=== PATIENT | male | born 1970 | race Caucasian/White ===

== ENCOUNTER 2021-05-21 13:22 | Inpatient (IN) ==
[2021-05-21 14:05] LABS: Hematocrit (blood only) 42.8 % (42-52); Hemoglobin 15.2 g/dL (14.0-18.0); Immature Granulocytes # (auto) 0.03 K/uL (0.00-0.02); Immature Granulocytes % (auto) 0.6 %; Lymphocytes % (auto) 14.3 %; Mean Corpuscular Hemoglobin 31.3 pg (25-34); Mean Corpuscular Hgb Conc 35.5 g/dL (32-36); Mean Corpuscular Volume 88.1 fL (80-100); Mean Platelet Volume 10.5 fL (7.4-10.4); Monocytes # (auto) 0.26 K/uL (0.11-0.59); Monocytes % (auto) 5.3 %; Neutrophils # (auto) 3.92 K/uL (1.4-6.5); Neutrophils % (auto) 79.8 %; Platelet Count 187 K/uL (130-400); RDW Coefficient of Variation 12.6 % (11.5-14.5); RDW Standard Deviation 40.6 fL (36.4-46.3); Red Blood Count 4.86 M/uL (4.7-6.1); White Blood Count 4.91 K/uL (4.8-10.8)
[2021-05-21] MEDS ORDERED: DEXAMETHASONE SOD INJ 4 MG/ML VIAL IV STA (14:12)
[2021-05-21 14:21] LABS: Partial Thromboplastin Ratio 1.1; Partial Thromboplastin Time 28.3 Seconds (21.0-31.0); Prothrombin Time 10.3 Seconds (9.0-12.0)
[2021-05-21 14:23] LABS: Alanine Aminotransferase 53 U/L (12-78); Albumin Level 2.9 gm/dl (3.4-5.0); Aspartate Aminotransferase 58 U/L (15-37); Blood Urea Nitrogen 10 mg/dl (7-18); Calcium 8.4 mg/dl (8.5-10.1); Carbon Dioxide 26 mmol/L (21-32); Chloride 98 mmol/L (98-107); Est GFR (African American) 115.8 ml/min; Est GFR (Non-African American) 99.9 ml/min; Glucose 171 mg/dl (70-99); Magnesium 1.4 mg/dl (1.8-2.4); Potassium 3.4 mmol/L (3.5-5.1); Sodium 134 mmol/L (136-145)
[2021-05-21 14:28] LABS: Albumin Globulin Ratio 0.6 (0.9-2); Alkaline Phosphatase 62 U/L (45-117); Bilirubin,Total 0.6 mg/dl (0.2-1); Globulin 4.7 gm/dl (2.5-4.0); Total Protein 7.6 gm/dl (6.4-8.2); Troponin I < 0.015 ng/ml (0-0.045)
--- NOTE | 2021-05-21 14:35 | XRay Report ---
XR chest 1V portable HISTORY: 50 years-old Male SOB acute shortness of breath. COVID Positive. COMPARISON: None TECHNIQUE: AP view of the chest FINDINGS: Cardiac silhouette is upper limits of normal in size. Extensive multifocal alveolar opacities. No pne umothorax, or pleural effusion. Bones appear grossly intact. IMPRESSION: Extensive bilateral alveolar opacities compatible with multifocal pneumonia. ACT 112: Negative or not required by law. The above report was generated using voice recognition software. It may contain grammatical, syntax o r spelling errors. Electronically signed by: Agustin Hendricks M.D. 05/21/2021 2:34 PM
[2021-05-21] MEDS: SODIUM CHLORIDE 0.9% 1000ML 1,000 ML IV SCH ×2 (14:36→19:59)
[2021-05-21 14:53] LABS: D Dimer 1110 ug/L FEU (0-500)
[2021-05-21 15:14] LABS: NT Pro B Type Natriuretic Pept 67 pg/ml (0-450)
--- NOTE | 2021-05-21 15:20 | Emergency Department Note ---
History of Present Illness General Chief complaint: Shortness of Breath/Dyspnea Stated complaint: SOB, COUGH, COVID +, NAUSEA, DIZZY Time Seen by Provider: 05/21/21 13:57 Source: patient Mode of arrival: EMS Limitations: no limitations History of Present Illness Provider complaint: shortness of breath, lightheadedness Onset (ago): day(s) 7 Exacerbated By: + movement Associated symptoms: + cough, + fever/chills, + headaches, + loss of appetite, + malaise, + nausea/vomiting and + shortness of breath Treatments prior to arrival: none This is a 50-year-old male presents emergency department complaining of shortness of breath cough, and lightheadedness while in the shower earlier this morning. Patient states he first became sick last Thursday and his symptoms progressed to the week he went and got a Covid test done. He was called with a positive Covid test result on Thursday. He states his family has also been ill. Patient states he has had mild nasal congestion, rhinorrhea, and intermittent abdominal pain in addition to the cough. Patient states he has had increased trouble breathing when taking showers over the course of the last week and assumed it was due to his recent illness however today felt worse and with becoming significantly lightheaded, 911 was contacted. EMS reports on arrival his room air sats were 84%. He was placed on additional oxygen and saturations improved into the 90s and patient reported feeling improved. On my evaluation here patient states he does feel improved with oxygen in place and feels it is easing his work of breathing. Patient denies any current chest pain or abdominal pain. Denies any coming rash or sores, lower extremity edema. Patient has had mild intermittent diarrhea, denies black or bloody stools. Denies any vomiting although states he has not had quite a normal appetite with being ill. Patient has not been previously vaccinated against coronavirus. Pt seen during a time of high acuity and national emergency pandemic while wearing PPE. Home Medications Medication Instructions Recorded Confirmed Type pantoprazole 40 mg tablet,delayed 40 mg PO DAILY PRN 08/18/20 05/21/21 History release dexamethasone 6 mg tablet 6 mg PO DAILY #10 tab 05/21/21 Rx (Decadron) Allergies Allergy/AdvReac Type Severity Reaction Status Date / Time No Known Allergies Allergy Unverified 05/21/21 15:58 Past Med/Surg History Social History Smoking Status: Former smoker Smoking End Date: 7 years ago; Hx Alcohol Use: No Hx Substance Use: No Preferred Language: Tuvaluan Communication Ability: Effective Micro Photographer Required: No Beliefs That Will Affect Care: [place] Current Living Situation: Family Current Living Situation Comment: Lives with and two daughters ( 8 and 2) Feels Safe at Home: Yes Safety Concerns: Feels Safe At This Time Assistive Devices: Oxygen - Continuous Review of Systems A total of 10 systems reviewed and were otherwise negative All systems reviewed & are unremarkable except as noted in HPI & below Physical Exam Vital Signs Vital Signs - 24 hr 05/21/21 16:00 05/21/21 16:30 05/21/21 17:00 Pulse Rate 80 75 74 Pulse Rate [Brachial] Pulse Rate from SpO2 Sensor 80 75 74 Respiratory Rate 35 H 46 H 40 H Blood Pressure 124/76 129/79 135/78 Blood Pressure [Left Arm] Blood Pressure Mean 92 95 97 Blood Pressure Mean [Left Arm] Pulse Oximetry 92 95 94 Oxygen Delivery Method Oxygen Flow Rate 05/21/21 17:30 05/21/21 19:02 Pulse Rate 83 Pulse Rate [Brachial] 72 Pulse Rate from SpO2 Sensor 82 Respiratory Rate 39 H 30 H Blood Pressure 133/81 Blood Pressure [Left Arm] 142/84 H Blood Pressure Mean 98 Blood Pressure Mean [Left Arm] 103 Pulse Oximetry 94 92 Oxygen Delivery Method Nasal Cannula Oxygen Flow Rate 4 GENERAL: alert, well appearing, well nourished, no distress, non-toxic, NC in place EYE EXAM: normal conjunctiva, PERRL and EOM's grossly intact OROPHARYNX: no exudate, no erythema, lips, buccal mucosa, and tongue normal and mucous membranes are moist NECK: supple, no nuchal rigidity, no adenopathy, non-tender LUNGS: Clear to auscultation. Normal chest wall mechanics, no w/r/r, no increased work of breathing, mild tachypnea noted HEART: no murmurs, S1 normal and S2 normal ABDOMEN: abdomen soft, non-tender, normo-active bowel sounds, no masses, no rebound or guarding. BACK: Back is symmetrical on inspection and there is no deformity, no midline tenderness, no CVA tenderness. SKIN: no rashes and no bruising UPPER EXTREMITIES: upper extremities are grossly normal. FROM, nml pulses b/l. LOWER EXTREMITIES: No pitting edema. FROM, nml pulses b/l. NEURO EXAM: Normal sensorium, cranial nerves II-XII grossly intact, normal speech, no gross weakness of arms, no gross weakness of legs. Gross sensation intact. Course Course 1701: Updated pt on results. He states he would prefer to go home if that was an option. He is aware he will need continued oxygen therapy. I did ask case management to investigate if this was an option based on insurance and outpatient follow-up. 183: Case mgmt still working on arranging possible home oxygen. 1899: On recheck, pt appeared more tachypneic than prior. On review of VS and discussion with nursing, he has been increasingly tachypneic. Patient states he does not feel that his breathing is worsening. 1916: Pt states his breathing isn't any worse, however discussed tachypnea. Given difficulty arranging home oxygen, discussed possible inpatient tx overnight with monitoring. 1924: DIscussed with Dr. Charles. Administered Medications Enoxaparin Sodium (Enoxaparin Inj 40 Mg/0.4 Ml Syr) 40 mg SQ Q24H NEHEMIAS Stop: 06/20/21 22:59 Last Admin: 05/22/21 01:12 Dose: 40 mg Documented by: [id number] Dexamethasone 6 mg/ Syringe 1.5 mls @ 1 mls/min IV DAILY NEHEMIAS Stop: 06/01/21 08:59 Last Admin: 05/22/21 08:08 Dose: 1 mls/min Documented by: [id number] Insulin Aspart (Insulin Aspart 100 Units/Ml 3 Ml Pen) 0 units SC ACHS NEHEMIAS Stop: 06/21/21 11:29 Last Admin: 05/22/21 12:27 Dose: 10 units Documented by: [id number] Cosigned by: [id number] Insulin Glargine (Insulin Glargine Solostar 100 Units/Ml 3 Ml Pen) 8 units SC BID NEHEMIAS Stop: 06/21/21 08:59 Last Admin: 05/22/21 10:19 Dose: 8 units Documented by: [id number] Cosigned by: [id number] Sodium Chloride (Sodium Chloride 0.9% 10ml Flush) 30 ml IV Q24H NEHEMIAS Stop: 05/26/21 00:01 Last Admin: 05/21/21 23:58 Dose: 30 ml Documented by: [id number] Discontinued Medications Acetaminophen (Acetaminophen Home Pack 500 Mg Tablet) 1 homepack PO NOW ONE Stop: 05/21/21 17:06 Last Admin: 05/21/21 20:55 Dose: Not Given Documented by: [id number] Dexamethasone (Dexamethasone Sod Inj 4 Mg/Ml Vial) 6 mg IV NOW STA Stop: 05/21/21 14:13 Last Admin: 05/21/21 14:36 Dose: 6 mg Documented by: [id number] Furosemide (Furosemide 40 Mg/4 Ml Vial) 20 mg IV NOW STA Stop: 05/21/21 21:22 Last Admin: 05/22/21 01:10 Dose: 20 mg Documented by: [id number] Furosemide (Furosemide 40 Mg/4 Ml Vial) Confirm Administered Dose 40 mg IV .STK- MED ONE Stop: 05/22/21 00:24 Last Admin: 05/22/21 01:07 Dose: Not Given Documented by: [id number] Sodium Chloride (Nss 1000ml) 1,000 mls @ 250 mls/hr IV .Q4H NEHEMIAS Stop: 06/20/21 14:14 Last Infusion: 05/21/21 22:23 Dose: 0 mls/hr Documented by: [id number] Admin: 05/21/21 19:59 Dose: 250 mls/hr Documented by: [id number] Infusion: 05/21/21 19:04 Dose: 0 mls/hr Documented by: [id number] Admin: 05/21/21 14:36 Dose: 250 mls/hr Documented by: [id number] Magnesium Sulfate/Dextrose (Magnesium Sulfate / D5w) 1 gm in 100 mls @ 100 mls/hr IV Q1H NEHEMIAS Stop: 05/21/21 16:48 Last Infusion: 05/21/21 18:03 Dose: 0 mls/hr Documented by: [id number] Admin: 05/21/21 16:55 Dose: 100 mls/hr Documented by: [id number] Infusion: 05/21/21 16:55 Dose: 0 mls/hr Documented by: [id number] Admin: 05/21/21 15:55 Dose: 100 mls/hr Documented by: [id number] Remdesivir 200 mg/ Sodium (Chloride) 250 mls @ 125 mls/hr IV ONE STA; Protocol Stop: 05/21/21 22:45 Last Infusion: 05/22/21 00:01 Dose: 0 mls/hr Documented by: [id number] Admin: 05/21/21 21:50 Dose: 125 mls/hr Documented by: [id number] Tocilizumab 400 mg/Tocilizumab 200 mg/Tocilizumab 160 mg/ Sodium Chloride 100 mls @ 100 mls/hr IV NOW ONE Stop: 05/22/21 11:44 Last Infusion: 05/22/21 13:27 Dose: 0 mls/hr Documented by: [id number] Cosigned by: [id number] Admin: 05/22/21 12:27 Dose: 100 mls/hr Documented by: [id number] Cosigned by: [id number] Ioversol (Optiray 320 125ml) 118 ml IV ONCE ONE Stop: 05/21/21 15:35 Last Admin: 05/21/21 15:34 Dose: 118 ml Documented by: [id number] Potassium Chloride (Potassium Chloride Crtab 20 Meq Tabcr) 40 meq PO NOW STA Stop: 05/21/21 21:23 Last Admin: 05/22/21 01:11 Dose: 40 meq Documented by: [id number] Medical Decision Making Differential Diagnosis Differential diagnoses includes but is not limited to pneumonia, bronchitis, COPD/Asthma exacerbation, pneumothorax, pulmonary embolism, congestive heart failure, acute coronary syndrome Medical Records Attestation: I reviewed the patient's medical records. Home Medications Current Medication List: was personally reviewed by me Laboratory Data Attestation: I reviewed the patient's lab results. Result diagrams: 05/22/21 05:57 05/22/21 05:57 Lab Results 05/21/21 05/21/21 05/21/21 Range/Units 13:39 13:39 13:39 WBC 4.91 (4.8-10.8) K/uL RBC 4.86 (4.7-6.1) M/uL Hgb 15.2 (14.0-18.0) g/dL Hct 42.8 (42-52) % MCV 88.1 (80-100) fL MCH 31.3 (25-34) pg MCHC 35.5 (32-36) g/dL RDW Std Deviation 40.6 (36.4-46.3) fL RDW Coeff of Chase 12.6 (11.5-14.5) % Plt Count 187 (130-400) K/uL MPV 10.5 H (7.4-10.4) fL Immature Gran % (Auto) 0.6 % Neut % (Auto) 79.8 % Lymph % (Auto) 14.3 % Leon % (Auto) 5.3 % Eos % (Auto) 0.0 % Baso % (Auto) 0.0 % Neut # (Auto) 3.92 (1.4-6.5) K/uL Lymph # (Auto) 0.70 L (1.2-3.4) K/uL Leon # (Auto) 0.26 (0.11-0.59) K/uL Eos # (Auto) 0.00 (0-0.5) K/uL Baso # (Auto) 0.00 (0-0.2) K/uL Immature Gran # (Auto) 0.03 H (0.00-0.02) K/uL PT 10.3 (9.0-12.0) Seconds INR 1.0 (0.9-1.1) APTT 28.3 (21.0-31.0) Seconds PTT Ratio 1.1 D-Dimer (0-500) ug/L FEU Sodium 134 L (136-145) mmol/L Potassium 3.4 L (3.5-5.1) mmol/L Chloride 98 (98-107) mmol/L Carbon Dioxide 26 (21-32) mmol/L Anion Gap 9.0 (3-11) BUN 10 (7-18) mg/dl Creatinine 0.90 (0.6-1.4) mg/dl Est Cr Clr Drug Dosing Not Reportable Est GFR ( Amer) 115.8 ml/min Est GFR (Non-Af Amer) 99.9 ml/min BUN/Creatinine Ratio 11.0 (10-20) Glucose 171 H (70-99) mg/dl Calcium 8.4 L (8.5-10.1) mg/dl Magnesium 1.4 L (1.8-2.4) mg/dl Total Bilirubin 0.6 (0.2-1) mg/dl AST 58 H (15-37) U/L ALT 53 (12-78) U/L Alkaline Phosphatase 62 (45-117) U/L Troponin I < 0.015 (0-0.045) ng/ml NT-Pro-B Natriuret Pep 67 (0-450) pg/ml Total Protein 7.6 (6.4-8.2) gm/dl Albumin 2.9 L (3.4-5.0) gm/dl Globulin 4.7 H (2.5-4.0) gm/dl Albumin/Globulin Ratio 0.6 L (0.9-2) COVID-19 Eval Order SARS-CoV-2 (PCR) (Negative) 05/21/21 05/21/21 05/21/21 Range/Units 13:57 14:37 14:37 WBC (4.8-10.8) K/uL RBC (4.7-6.1) M/uL Hgb (14.0-18.0) g/dL Hct (42-52) % MCV (80-100) fL MCH (25-34) pg MCHC (32-36) g/dL RDW Std Deviation (36.4-46.3) fL RDW Coeff of Chase (11.5-14.5) % Plt Count (130-400) K/uL MPV (7.4-10.4) fL Immature Gran % (Auto) % Neut % (Auto) % Lymph % (Auto) % Leon % (Auto) % Eos % (Auto) % Baso % (Auto) % Neut # (Auto) (1.4-6.5) K/uL Lymph # (Auto) (1.2-3.4) K/uL Leon # (Auto) (0.11-0.59) K/uL Eos # (Auto) (0-0.5) K/uL Baso # (Auto) (0-0.2) K/uL Immature Gran # (Auto) (0.00-0.02) K/uL PT (9.0-12.0) Seconds INR (0.9-1.1) APTT (21.0-31.0) Seconds PTT Ratio D-Dimer 1110 H* (0-500) ug/L FEU Sodium (136-145) mmol/L Potassium (3.5-5.1) mmol/L Chloride (98-107) mmol/L Carbon Dioxide (21-32) mmol/L Anion Gap (3-11) BUN (7-18) mg/dl Creatinine (0.6-1.4) mg/dl Est Cr Clr Drug Dosing Est GFR ( Amer) ml/min Est GFR (Non-Af Amer) ml/min BUN/Creatinine Ratio (10-20) Glucose (70-99) mg/dl Calcium (8.5-10.1) mg/dl Magnesium (1.8-2.4) mg/dl Total Bilirubin (0.2-1) mg/dl AST (15-37) U/L ALT (12-78) U/L Alkaline Phosphatase (45-117) U/L Troponin I (0-0.045) ng/ml NT-Pro-B Natriuret Pep (0-450) pg/ml Total Protein (6.4-8.2) gm/dl Albumin (3.4-5.0) gm/dl Globulin (2.5-4.0) gm/dl Albumin/Globulin Ratio (0.9-2) COVID-19 Eval Order Covid19 at [facility] SARS-CoV-2 (PCR) POSITIVE A* (Negative) Imaging Data Radiologist's Impression: Chest X-Ray 05/21/21 13:57 XR chest 1V portable HISTORY: 50 years-old Male SOB acute shortness of breath. COVID Positive. COMPARISON: None TECHNIQUE: AP view of the chest FINDINGS: Cardiac silhouette is upper limits of normal in size. Extensive multifocal alveolar opacities. No pneumothorax, or pleural effusion. Bones appear grossly intact. IMPRESSION: Extensive bilateral alveolar opacities compatible with multifocal pneumonia. ACT 112: Negative or not required by law. The above report was generated using voice recognition software. It may contain grammatical, syntax or spelling errors. Electronically signed by: Agustin Hendricks M.D. 05/21/2021 2:34 PM Chest CTA 05/21/21 15:11 CT ANGIOGRAM OF THE CHEST CLINICAL HISTORY: PE COMPARISON STUDY: No previous studies for comparison. TECHNIQUE: Following the IV administration of 118 mL of Optiray, CT angiogram of the thorax was performed from the thoracic inlet to the lung bases utilizing the pulmonary embolus protocol. Images are reviewed in the axial, sagittal, and coronal planes. IV contrast was administered without complication. MIP imaging was performed. A dose lowering technique was utilized adhering to the princ iples of ALFON[place]. CT DOSE: 519.52 mGycm FINDINGS: Adequate opacification within main pulmonary artery. No definite acute central pulmonary embolus is seen. Evaluation of peripheral branches of the pulmonary artery significantly limited due to motion artifact. No definite acute pulmonary embolus is seen. No right heart strain is demonstrated. Main pulmonary artery is dilated measuring approximately 3.1 cm in diameter, which could be seen in pulmonary hypertension. Heart is normal in size without pericardial effusion or significant coronary calcifications. Visualized portion of thyroid gland shows no evidence of focal lesions. Minimal hiatal hernia is seen. There is no axillary, supra clavicle or internal mammary lymphadenopathy seen. Multiple mediastinal and hilar lymph nodes are slightly prominent measuring up to 1.3 cm in short axis within subcarinal region. There was no evidence of thoracic aortic dilatation. Tracheobronchial tree is patent. Multifocal mixed groundglass and consolidative opacities are seen throughout bilateral lungs, patchy and show minimal septal thickening. Evaluation is limited due to significant motion artifact. No pleural effusion seen. Limited evaluation of upper abdominal viscera shows no evidence of acute abnormalities however evaluation is limited due to motion artifact. Osseous structures: Minimal degenerative changes of the spine. IMPRESSION: 1. No definite central pulmonary embolus is seen however evaluation of peripheral branches of pulmonary artery is limited due to significant motion artifact. 2. Multifocal infiltrative lesions throughout bilateral lungs likely representing pneumonia/Covid. 3. Slightly prominent mediastinal lymph nodes, likely reactive. 4. Dilatation of the main pulmonary artery could be seen in pulmonary hypertension. 5. The rest of findings as above. ACT 112: Negative or not required by law. The above report was generated using voice recognition software. It may contain grammatical, syntax or spelling errors. Electronically signed by: Krystina Casey DO 05/21/2021 4:04 PM ECG Data Attestation: I personally reviewed and interpreted this ECG as follows: Indication: + SOB/dyspnea Rate (beats per minute): 86 Rhythm: + normal sinus ECG Intervals/blocks: + Normal QRS and + Normal QT ECG [place]: + Normal ECG ST segments: + T-wave inversions (III, aVF) MDM Narrative This is an otherwise healthy 50-year-old who presents with known coronavirus in the setting of increased trouble breathing and lightheadedness today. Patient was found to be hypoxic and was maintained on 4 L via nasal cannula and reported feeling markedly improved. Labs are reassuring, chest x-ray suggestive of Covid infection with multiple opacities noted bilaterally. Patient was initially slightly tachypneic and upon discussion at bedside patient would prefer to go home. I did involve case management and we did attempt to make arrangements for home oxygen therapy. While this process was taking place over the course of several hours patient continued to be monitored and while he continued to report feeling improved, it was noted that the patient remained tachypneic and on my repeat exams it appeared that his tachypnea was worsening. Patient did not appear to be significantly distressed or have increased work of breathing, the persistent tachypnea in the setting of his current pulmonary infection was concerning and I discussed with him again additional inpatient monitoring and treatment. Patient was maintaining his oxygen saturation on the 4 L/min. CT angiography of the chest was also reassuring and no additional pathology noted. Troponin negative. Patient with no other cardiac history. Patient agreement with plan for inpatient monitoring and treatment, case discussed with hospitalist. An order was placed for continuous cardiac monitoring. The monitor shows a rate of _76_ with _normal sinus_ rhythm. Patient has no family history of pulmonary disease. Patient was first seen and observation began at 1357 and was necessary in order to evaluate and treat hypoxia. Upon re-evaluation, 5 hours of observation revealed that the patient should be admitted. Discharge time at 1925. Impression & Plan Dyspnea, COVID-19, Hypoxia Discharge Plan Visit Data Chief Complaint: Shortness of Breath/Dyspnea Stated Complaint: SOB, COUGH, COVID +, NAUSEA, DIZZY ED Provider: Amy Mejia Discharge Problem: Dyspnea, COVID-19, Hypoxia Patient Disposition: Admitted As Inpatient Condition: Good Discharge Instructions Interventions: ED Discharge Assessment Last Done: 05/21/21 21:25 COVID Tier Tier I: No follow up necessary. Covid Fact Sheet / ED Discharge Instructions only Tier II: Self-Monitoring Kit, Temp 2x day/pulse ox q8 hrs. Followup call in 24 hrs. Tier III: Self-Monitoring Kit, Temp 2x day/pulse ox q4 hours, with Home Oxygen, Followup call @ 8 & 24hrs. Telehealth Followup in 48hrs ED COVID Discharge Tier: Tier III: Stable for D/C. Given a Self-Mon Kit. Oxygen & 2 Call Backs Discharge Problem: Dyspnea Qualifiers: Dyspnea type: shortness of breath Qualified Code(s): R06.02 - Shortness of breath
--- NOTE | 2021-05-21 15:33 | Electrocardiogram Report ---
Test Reason : Blood Pressure : / mmHG Vent. Rate : 086 BPM Atrial Rate : 086 BPM P-R Int : 140 ms QRS Dur : 086 ms QT Int : 360 ms P-R-T Axes : 031 059 -24 degrees QTc Int : 430 ms Normal sinus rhythm Abnormal ECG No previous ECGs available Confirmed by Richie Coleman ([id number]) on 05/21/2021 3:32:54 PM Referred By: Confirmed By:Sudheer Coleman
[2021-05-21] MEDS ORDERED: OPTIRAY 320 125ml IV ONE (15:34)
[2021-05-21] MEDS: MAGNESIUM SULFATE / D5W 1 GM/100 ML BAG IV SCH ×2 (15:55→16:55)
--- NOTE | 2021-05-21 16:06 | CT Scan Report ---
CT ANGIOGRAM OF THE CHEST CLINICAL HISTORY: PE COMPARISON STUDY: No previous studies for comparison. TECHNIQUE: Following the IV administration of 118 mL of Optiray, CT angiogram of the thorax was perfo rmed from the thoracic inlet to the lung bases utilizing the pulmonary embolus protocol. Images are r eviewed in the axial, sagittal, and coronal planes. IV contrast was administered without complication . MIP imaging was performed. A dose lowering technique was utilized adhering to the principles of [place]. CT DOSE: 519.52 mGycm FINDINGS: Adequate opacification within main pulmonary artery. No definite acute central pulmonary embolus is seen. Evaluation of peripheral branches of the pulmona ry artery significantly limited due to motion artifact. No definite acute pulmonary embolus is seen. No right heart strain is demonstrated. Main pulmonary artery is dilated measuring approximately 3.1 cm in diameter, which could be seen in p ulmonary hypertension. Heart is normal in size without pericardial effusion or significant coronary calcifications. Visualized portion of thyroid gland shows no evidence of focal lesions. Minimal hiatal hernia is seen . There is no axillary, supra clavicle or internal mammary lymphadenopathy seen. Multiple mediastinal and hilar lymph nodes are slightly prominent measuring up to 1.3 cm in short axi s within subcarinal region. There was no evidence of thoracic aortic dilatation. Tracheobronchial tree is patent. Multifocal mixed groundglass and consolidative opacities are seen throughout bilateral lungs, patchy and show minimal septal thickening. Evaluation is limited due to significant motion artifact. No pleural effusion seen. Limited evaluation of upper abdominal viscera shows no evidence of acute abnormalities however evalua tion is limited due to motion artifact. Osseous structures: Minimal degenerative changes of the spine. IMPRESSION: 1. No definite central pulmonary embolus is seen however evaluation of peripheral branches of pulmon juan artery is limited due to significant motion artifact. 2. Multifocal infiltrative lesions throughout bilateral lungs likely representing pneumonia/Covid. 3. Slightly prominent mediastinal lymph nodes, likely reactive. 4. Dilatation of the main pulmonary artery could be seen in pulmonary hypertension. 5. The rest of findings as above. ACT 112: Negative or not required by law. The above report was generated using voice recognition software. It may contain grammatical, syntax o r spelling errors. Electronically signed by: Krystina Casey DO 05/21/2021 4:04 PM
[2021-05-21] MEDS ORDERED: ACETAMINOPHEN HOME PACK 500 MG TABLET PO ONE (17:05)
[2021-05-21] MEDS ORDERED: REMDESIVIR 200 MG in SODIUM CHLORIDE 0.9% 210 ML IV STA (20:46)
[2021-05-21] MEDS ORDERED: FUROSEMIDE 40 MG/4 ML VIAL IV STA (21:21)
[2021-05-21] MEDS ORDERED: POTASSIUM CHLORIDE CRTAB 20 MEQ TABCR PO STA (21:22)
[2021-05-21] MEDS ORDERED: ACETAMINOPHEN 325 MG TAB PO PRN (21:48)
[2021-05-21] MEDS ORDERED: PANTOprazole 40 MG TAB PO PRN (21:48)
[2021-05-21] MEDS ORDERED: ONDANSETRON INJ 2 MG/ML 2 ML VIAL IV PRN (21:48)
[2021-05-21] MEDS ORDERED: NITROGLYCERIN SL 0.4 MG/TAB TAB SL PRN (21:48)
[2021-05-22] MEDS ORDERED: SODIUM CHLORIDE 0.9% 10ML FLUSH IV SCH
--- NOTE | 2021-05-22 00:09 | History and Physical Report ---
DATE OF ADMISSION: 05/21/2021. CHIEF COMPLAINT: COVID pneumonia and hypoxia. HISTORY OF PRESENT ILLNESS: This is a 50-year-old male with past medical history significant for GERD, presents with shortness of breath. The patient states he is having symptoms since 05/12/2021 with some mild cough and shortness of breath, occasional chest discomfort, abdominal discomfort, and occasional on and off diarrhea, poor appetite, and on and off loss of smell and taste, and it was not getting better, and earlier he had fever, now he does not have any fever. He came to the ER and he was saturating at 86% on room air and with 4 liters he was saturating okay, but later he was requiring high-flow oxygen. When I saw him, the patient denies any headache, no neck pain, no blurred visions, no earache, no runny nose, no sore throat, no difficulty swallowing, no nausea, no rash. The patient is not vaccinated. ALLERGIES: No known drug allergies. PAST MEDICAL HISTORY: As mentioned above. PAST SURGICAL HISTORY: Denies any surgical history. FAMILY HISTORY: The patient says he does not have any parents. SOCIAL HISTORY: Quit smoking and alcohol in 2012. No drug use. REVIEW OF SYSTEMS: As per HPI. Rest of the review of systems negative. PHYSICAL EXAMINATION: GENERAL: The patient is of moderate build, not in acute distress. VITAL SIGNS: Temperature 36.5, pulse 75, respiratory rate 20, blood pressure 134/77, oxygen 92% on high flow, 25 liters, 60% FiO2. HEENT: No pallor, no icterus. Pupils equal, round and reactive to light. Oral mucosa moist. NECK: No JVD, no neck masses. CARDIOVASCULAR: S1 and S2 heard. Regular rate and rhythm. No murmur, no gallop. RESPIRATORY SYSTEM: Normal AP diameter. No accessory muscle use. No wheezing, no crackles. ABDOMEN: Soft, bowel sounds present, nontender, no distention. CENTRAL NERVOUS SYSTEM: Cranial nerves II-XII grossly intact, nonfocal. EXTREMITIES: No edema, no erythema. LABORATORY DATA: WBC 4.9, hemoglobin 15.2, hematocrit 42.8, platelets 187. PT 13.2, INR 1, APTT 28.3. D-dimer 1110. Sodium 134, potassium 3.4, chloride 98, bicarbonate 26, BUN is 10, creatinine 0.9, serum glucose 171, calcium 8.4, magnesium 1.4, total bilirubin 0.6, AST 58, ALT 53, alkaline phosphatase 62. Troponin I less than 0.015. SARS-CoV-2 PCR positive. IMAGING DATA: CTA of the chest, no definite PE, multifocal infiltrate throughout the bilateral lungs, likely representing pneumonia. Slightly prominent mediastinal lymph nodes, likely reactive. Dilatation of the main pulmonary artery could be seen and pulmonary hypertension. Chest x-ray, extensive bilateral alveolar opacities compatible with multifocal pneumonia. EKG: Normal sinus rhythm at a rate of 86, nonspecific ST-T abnormalities. ASSESSMENT AND PLAN: This is a 50-year-old male who presents with COVID pneumonia and hypoxia. 1. COVID pneumonia and hypoxia: Initially he required 4 L, later he was requiring high flow oxygen. Initially required some fluids. Stopped the fluids and gave a dose of IV Lasix. Started remdesivir and steroids and closely monitor in the tele floor. Follow the inflammatory markers. 2. Gastroesophageal reflux disease: Continue Protonix. 3. Hypokalemia and hypomagnesemia: Will replace. Follow the repeat labs. 4. Deep venous thrombosis prophylaxis: Lovenox. DISPOSITION: Closely monitor in the tele floor. Level I full code. Expect to discharge home and follow with family doctor. Job ID: [id number] [facility]
[2021-05-22] MEDS ORDERED: FUROSEMIDE 40 MG/4 ML VIAL IV ONE (00:23)
[2021-05-22] MEDS: ENOXAPARIN INJ 40 MG/0.4 ML SYR SQ SCH ×2 (01:12→23:13)
[2021-05-22 06:19] LABS: Hematocrit (blood only) 39.7 % (42-52); Immature Granulocytes # (auto) 0.02 K/uL (0.00-0.02); Immature Granulocytes % (auto) 0.6 %; Lymphocytes # (auto) 0.57 K/uL (1.2-3.4); Lymphocytes % (auto) 15.7 %; Mean Corpuscular Hemoglobin 30.9 pg (25-34); Mean Corpuscular Hgb Conc 35.3 g/dL (32-36); Mean Corpuscular Volume 87.6 fL (80-100); Mean Platelet Volume 10.2 fL (7.4-10.4); Monocytes # (auto) 0.29 K/uL (0.11-0.59); Neutrophils # (auto) 2.74 K/uL (1.4-6.5); Neutrophils % (auto) 75.7 %; Platelet Count 197 K/uL (130-400); RDW Coefficient of Variation 12.6 % (11.5-14.5); RDW Standard Deviation 40.6 fL (36.4-46.3); Red Blood Count 4.53 M/uL (4.7-6.1); White Blood Count 3.62 K/uL (4.8-10.8)
[2021-05-22 06:55] LABS: Alanine Aminotransferase 52 U/L (12-78); Albumin Level 2.6 gm/dl (3.4-5.0); Aspartate Aminotransferase 49 U/L (15-37); BUN Creatinine Ratio 13.9 (10-20); Bilirubin Direct 0.2 mg/dl (0-0.2); Blood Urea Nitrogen 12 mg/dl (7-18); Calcium 8.2 mg/dl (8.5-10.1); Carbon Dioxide 26 mmol/L (21-32); Chloride 104 mmol/L (98-107); Creatinine Clr Calc Pharmacy 115.8 ml/min; Est GFR (African American) 116.9 ml/min; Est GFR (Non-African American) 100.9 ml/min; Glucose 282 mg/dl (70-99); Magnesium 2.4 mg/dl (1.8-2.4); Sodium 133 mmol/L (136-145)
[2021-05-22 06:56] LABS: Alkaline Phosphatase 56 U/L (45-117); Bilirubin,Total 0.5 mg/dl (0.2-1); C Reactive Protein 9.63 mg/dl (0-0.29); Ferritin 1459.6 ng/ml (8-388); Total Protein 6.8 gm/dl (6.4-8.2); Troponin I < 0.015 ng/ml (0-0.045)
[2021-05-22 07:19] LABS: D Dimer 990 ug/L FEU (0-500)
[2021-05-22] MEDS: dexAMETHasone 6 MG in SYRINGE 0 ML IV SCH (08:08)
[2021-05-22] MEDS ORDERED: GLUCOSE 40% GEL 15 GM TUBE PO PRN (08:32)
[2021-05-22] MEDS ORDERED: GLUCAGON FOR INJ 1 MG VIAL SQ PRN (08:32)
[2021-05-22] MEDS ORDERED: CARBOHYDRATES FOR HYPOGLYCEMIA PO PRN (08:32)
[2021-05-22] MEDS ORDERED: DEXTROSE 50% 50 ML SYRINGE IV PRN (08:32)
[2021-05-22] MEDS ORDERED: GLUCOSE 10 TABS/TUBE PO PRN (08:32)
[2021-05-22] MEDS: INSULIN GLARGINE SOLOSTAR 100 UNITS/ML 3 ML PEN SC SCH ×2 (10:19→21:06)
[2021-05-22] MEDS ORDERED: [UNRECOGNIZED DRUG - OTHER] IV ONE (10:45)
[2021-05-22] MEDS ORDERED: TOCILIZUMAB IV ONE (10:45)
[2021-05-22] MEDS: INSULIN ASPART 100 UNITS/ML 3 ML PEN SC SCH ×3 (12:27→21:06)
--- NOTE | 2021-05-22 16:04 | Pulmonary Consultation ---
Date of Consultation May 22, 2021 Assessment & Plan (1) Acute hypoxemic respiratory failure: (2) COVID-19: (3) Dyspnea: Dyspnea type: shortness of breath Qualified Code(s): R06.02 - Shortness of breath (4) Abnormal CT scan of lung: Impression: 50-year-old male nonvaccinated for Covid presents with Covid with symptoms going on for about 10days. He is hypoxemic respiratory failure and diffuse multifocal infiltrates on CT scan. Recommendations: 1. COVID-19 pneumonia: The patient is far enough out that I do not think remdesivir is can offer him a clinical benefit. Stopping viral replication at this point time is unlikely to change his clinical course. We will discontinue remdesivir. Continue dexamethasone 6 mg daily. Patient was reviewed meets criteria for Tocilizumab. This is being administered currently. We will continue to follow clinically. If the patient should deteriorate, transfer to the ICU for noninvasive positive pressure ventilation and consideration of intubation may be appropriate. He appears comfortable currently despite his high oxygen requirement. 2. Patient was encouraged to participate in self proning although on review of his CT scan the airspace opacity is fairly diffuse and I am unclear if proning may improve VQ mismatch or gas exchange. There is not much of a downside as long as he can do it. 3. We will observe for signs of secondary infection. No indication for antimicrobial agents currently. 4. Management of the patient's other medical issues is deferred to the admitting hospitalist. Patient's prognosis is guarded at this point time. We will see how he responds to therapy. History of Present Illness Attending Physician: Danielle Perkins MD History of Present Illness Asked by hospitalist to evaluate this patient with Covid pneumonia and hypoxemic respiratory failure. History is obtained from review electronic medical record and discussion with the patient. Patient is a 50-year-old male without prior medical history. He elected to not pursue Covid vaccination as he states "I do not believe in vaccines". He presented to the emergency room yesterday with complaints of shortness of breath. He has been symptomatic dating back to May 12 with cough and shortness of breath as well as chest discomfort diarrhea poor appetite and loss of taste and smell. He was found to be mildly hypoxemic in the emergency room and placed initially on 4 L and then transitioned to high flow oxygen. He received Lasix remdesivir and dexamethasone and was admitted to the floor. Pulmonary was consulted due to increasing oxygen requirement. On the floor the patient is awake alert and sitting up. He has been self proning but states that he just got back to his supine position. He is coughing but overall feels better. He is on high flow. He is not complaining of any chest pain. He is not had any fevers. He is not expectorating any phlegm. Allergies Allergy/AdvReac Type Severity Reaction Status Date / Time No Known Allergies Allergy Unverified 05/21/21 15:58 Home Medications Medication Instructions Recorded Confirmed Type pantoprazole 40 mg tablet,delayed 40 mg PO DAILY PRN 08/18/20 05/21/21 History release dexamethasone 6 mg tablet 6 mg PO DAILY #10 tab 05/21/21 Rx (Decadron) Patient History Social History Smoking Status: Former smoker Smoking End Date: 7 years ago; Hx Alcohol Use: No Hx Substance Use: No Preferred Language: Vietnamese Communication Ability: Effective Claim Investigator Required: No Beliefs That Will Affect Care: Sabianism Current Living Situation: Family Current Living Situation Comment: Lives with and two daughters ( 8 and 2) Feels Safe at Home: Yes Safety Concerns: Feels Safe At This Time Assistive Devices: Oxygen - Continuous Review of Systems Review of Systems: Please refer to admission H&P. No changes additions or deletions Physical Exam Constitutional: WD/WN, vitals as above Neck: trachea midline, no thyromegaly Respiratory: normal respiratory effort, lungs clear to auscultation Cardiovascular: RRR, no murmur, no edema Gastrointestinal (Abdomen): normal bowel sounds, soft, nontender, no hepatosplenomegaly Musculoskeletal: Extremities: extremities normal to inspection Skin: no rashes, warm and dry Neurologic: Nonfocal exam Lymphatic: no cervical lymphadenopathy Results & Data Results & Data ([facility]) Vital Signs (Past 12 Hours) Vital Signs Temp Pulse Pulse Resp BP Pulse Ox 05/22/21 15:17 65 18 94 05/22/21 11:46 36.7 C 64 20 126/78 93 05/22/21 10:44 58 L 18 95 05/22/21 08:12 36.7 C 72 16 142/83 H 91 05/22/21 07:36 78 22 93 05/22/21 07:30 56 L Laboratory Results 05/22/21 05:57 05/22/21 05:57 Initial D-dimer 1110 now down to 990 Ferritin 1459 Liver function tests with AST of only 49 and ALT 52 CRP 9.63 Troponin negative x2 Diagnostic Findings CT angiogram from 05/21/2021 at 3:43 PM was independently reviewed. No PE is identified. There are patchy parenchymal opacities bilaterally. No suspicious mediastinal or hilar adenopathy is identified. No significant effusions. PG Care Time/CCT Total # of Minutes Spent Total Time Spent with Patient: Total time spent is greater than 50% in coordination of care (as documented) at patient's floor/unit and/or counseling patient: Coding Level of Care Code 04898 Inpt Consult Level 4 Diagnoses Acute hypoxemic respiratory failure J96.01 COVID-19 U07.1 Dyspnea R06.02 Dyspnea type: shortness of breath Abnormal CT scan of lung R91.8
[2021-05-22] MEDS ORDERED: REMDESIVIR 100 MG in SODIUM CHLORIDE 0.9% 230 ML IV SCH (20:00)
[2021-05-22] MEDS ORDERED: Nursing to Pharmacy Communication SCH (20:00)
--- NOTE | 2021-05-22 20:50 | Hospitalist Progress Note ---
Date of Service May 22, 2021 Assessment & Plan (1) Acute hypoxemic respiratory failure: (2) COVID-19: Plan: 50-year-old gentleman with PMH of GERD presents 05/21 with shortness of breath since last 10 days, worsening lately, associated with mild cough and occasional chest discomfort/abdominal discomfort/poor appetite/loss of smell and taste. Per patient, he has not received any Covid vaccine. Is being managed for the following: #. Acute hypoxic respiratory failure SaO2 84% upon arrival to ED, improved to 90s on 4 L oxygen His oxygen requirement increased to high flow oxygen. Patient started on remdesivir 05/21 [received 1 dose], steroid 05/21, Tocilizumab 05/22 Pulmonology on board: Remdesivir with questionable benefit at this stage. DC'd remdesivir. Continue with dexamethasone. Received 1 dose of Tocilizumab 05/22. If patient deteriorates, transfer to ICU for noninvasive positive pressure ventilation and possibly intubation. #. Covid pneumonia Patient is not vaccinated against Covid. See above. Continue to monitor for bacterial superinfection. #. GERD: Continue home PPI #. Hypokalemia and hypomagnesemia: Replaced, follow-up with morning labs #. DVT prophylaxis: Lovenox Disposition: Full code. Expect to discharge home upon completion of remdesivir when patient's hypoxic respiratory failure improves. Admission and Anticipated Discharge Date Admission Date: May 21, 2021 Subjective Patient was lying in bed, on high flow nasal cannula oxygen, not in acute distress, endorses some shortness of breath when he moves around, no shortness of breath while resting, denies any fever, headache, chills, sore throat, cough, chest pain, belly pain, palpitation, acute changes in his bowel or bladder habit. Physical Exam Physical Exam: GENERAL: Alert and oriented x3. NAD, on on high flow nasal cannula oxygen HEENT: No pallor, no icterus. Pupils equal, round and reactive to light. Oral mucosa moist. NECK: No JVD, no neck masses. HEART: S1 and S2 heard. Regular rate and rhythm. No murmur, no gallop. Auscultation was limited due to yellow stethoscope. RESPIRATORY SYSTEM: Normal AP diameter. No accessory muscle use. No wheezing, no crackles. Auscultation was limited due to yellow stethoscope. ABDOMEN: Soft, bowel sounds present, nontender, no distention. CENTRAL NERVOUS SYSTEM: Alert and oriented x3. No facial droop. Speech is clear. Obeys simple commands. Moves extremities. EXTREMITIES: No edema, no erythema seen. Results & Data Results & Data ([facility]) Vital Signs (Past 12 Hours) Vital Signs Temp Pulse Pulse Resp BP Pulse Ox 05/22/21 19:14 68 18 89 L 05/22/21 18:00 64 05/22/21 16:58 36.3 C L 69 18 129/76 93 05/22/21 15:17 65 18 94 05/22/21 11:46 36.7 C 64 20 126/78 93 05/22/21 10:44 58 L 18 95
[2021-05-23] MEDS: dexAMETHasone 6 MG in SYRINGE 0 ML IV SCH (08:39)
[2021-05-23 08:53] LABS: Hematocrit (blood only) 40.8 % (42-52); Hemoglobin 14.3 g/dL (14.0-18.0); Mean Corpuscular Hemoglobin 31.1 pg (25-34); Mean Corpuscular Volume 88.7 fL (80-100); Mean Platelet Volume 10.3 fL (7.4-10.4); Platelet Count 237 K/uL (130-400); RDW Coefficient of Variation 12.7 % (11.5-14.5); RDW Standard Deviation 40.8 fL (36.4-46.3); White Blood Count 7.62 K/uL (4.8-10.8)
[2021-05-23 09:19] LABS: BUN Creatinine Ratio 23.4 (10-20); Creatinine Clr Calc Pharmacy 126.2 ml/min; Est GFR (African American) 121.6 ml/min; Est GFR (Non-African American) 104.9 ml/min; Magnesium 1.9 mg/dl (1.8-2.4); Phosphorus 3.4 mg/dl (2.5-4.9); Potassium 4.5 mmol/L (3.5-5.1)
[2021-05-23] MEDS: INSULIN ASPART 100 UNITS/ML 3 ML PEN SC SCH ×4 (09:19→21:23)
[2021-05-23] MEDS: INSULIN GLARGINE SOLOSTAR 100 UNITS/ML 3 ML PEN SC SCH ×2 (09:19→21:23)
[2021-05-23] MEDS ORDERED: OXYMETAZOLINE 0.05% 30 ML BTL PRN (09:41)
[2021-05-23] MEDS ORDERED: PHARMACY GLYCEMIC MGMT CONSULT PRN (09:47)
[2021-05-23] MEDS ORDERED: INSULIN HUMAN NPH SC ONE (10:30)
--- NOTE | 2021-05-23 10:33 | Pharmacy Report ---
Pharmacy Glycemic Short Note 2 - Date of Service May 23, 2021 - Glycemic Short BSG Results (Last 24 hours): 05/22/21 05/22/21 05/22/21 11:41 17:57 20:55 Glucose POC Glucose 299 H 287 H 272 H 05/23/21 05/23/21 08:29 08:35 Glucose 252 H POC Glucose 240 H OUTPATIENT ANTIDIABETIC REGIMEN: * N/A ASSESSMENT: * 50 year old male admitted for SOB, COVID19 +, on IV Dexamethasone causing hy perglycemia, PMH significant for GERD, ordered A1c * Patient requires NPH to cover steroid effects and tighter goal range, CF, and CR * Additional accuchecks overnight tonight until euglycemia established * ADA & AACE recommend a goal blood sugar range 140-180 mg/dl for the majority of critically ill & non-critically ill patients. However, more stringent targets may be selected in individual cases. Will utilize more stringent goal of 110-140mg/dl based on patient age & comorbidities. Additionally, tighter glycemic control is warranted to facilitate wound/infection healing. PLAN FOR INPATIENT GLYCEMIC CONTROL: * Basal insulin * Lantus 8 units SQ BID, continue for now, may stop if having low AM blood sugars * NPH 35 units SQ Daily with NPH, start now * Bolus insulin * NovoLog per scale ACHS or Q6hrs while NPO and overnight tonight at 0000 and 0400 * Goal Range: Low 110 mg/dL - High 140 mg/dL * Correction Factor: 20 mg/dL/unit * Nutritional / Prandial insulin per carb ratio of 1 unit per 6 grams CHO consumed PLAN FOR DISCHARGE: * to be determined
[2021-05-23] MEDS: guaiFENesin 600 MG TABCR PO SCH ×2 (10:34→21:11)
[2021-05-23] MEDS ORDERED: [UNRECOGNIZED DRUG - OTHER] IV ONE (12:00)
[2021-05-23] MEDS ORDERED: TOCILIZUMAB IV ONE (12:00)
--- NOTE | 2021-05-23 13:25 | Electrocardiogram Report ---
Test Reason : Blood Pressure : / mmHG Vent. Rate : 055 BPM Atrial Rate : 055 BPM P-R Int : 144 ms QRS Dur : 084 ms QT Int : 466 ms P-R-T Axes : 018 027 -06 degrees QTc Int : 445 ms Sinus bradycardia Low voltage QRS T wave abnormality, consider inferior ischemia Abnormal ECG When compared with ECG of 21-MAY-2021 13:32, Vent. rate has decreased BY [address] no longer depressed in Anterolateral leads Confirmed by Richie Coleman ([id number]) on 05/23/2021 1:24:47 PM Referred By: REFERRED SELF Confirmed By:Sudheer Coleman
--- NOTE | 2021-05-23 13:55 | Pulmonology Progress Note ---
Date of Service May 23, 2021 Assessment & Plan (1) Acute hypoxemic respiratory failure: (2) COVID-19: (3) Dyspnea: Dyspnea type: shortness of breath Qualified Code(s): R06.02 - Shortness of breath (4) Abnormal CT scan of lung: Plan: Impression: 50-year-old male nonvaccinated for Covid presents with Covid with symptoms going on for about 10days. He is hypoxemic respiratory failure and diffuse multifocal infiltrates on CT scan. His oxygen requirement slightly improved today Recommendations: 1. COVID-19 pneumonia: Patient was ordered Tocilizumab yesterday. The med ication was released by pharmacy but unfortunately for some reason does not appear to have been administered by nursing and is now . Discussed with pharmacy in detail. We apparently have an adequate supply and the patient is still within the window so we will go ahead and administer today. He does appear to be slightly improving with regards to his oxygen requirement. Continue efforts to wean oxygen to maintain saturations at or above 90%. 2. Patient was encouraged to participate in self proning although on review of his CT scan the airspace opacity is fairly diffuse and I am unclear if proning may improve VQ mismatch or gas exchange. There is not much of a downside as long as he can do it. 3. We will observe for signs of secondary infection. No indication for antimicrobial agents currently. 4. Management of the patient's other medical issues is deferred to the [facility] hospitalist. Patient has shown some clinical improvement over the last 24 hours. At this point time pulmonary will sign off. Please contact us should the patient's clinical condition deteriorate or with new pulmonary issues. A total of 40 minutes was spent coordinating this patient's care including discussions with the pharmacy, nurse managers, and clinical coordinators. Admission and Anticipated Discharge Date Admission Date: May 21, 2021 Subjective Chart review conducted. The patient was not examined in order to minimize exposure to staff. Please refer to hospitalist notes for subjective and physical exam. Was contacted by nursing this morning that the order Tocilizumab had been spiked but was never actually administered to the patient and is now . Review of Systems Review of Systems: Per hospitalist note Physical Exam Physical Exam: Per hospitalist note Results & Data Results & Data ([facility]) Vital Signs (Past 12 Hours) Vital Signs Temp Pulse Pulse Pulse Pulse Resp BP 05/23/21 11:38 36.5 C 55 L 21 118/75 05/23/21 11:12 67 18 05/23/21 09:08 05/23/21 08:49 36.5 C 54 L 14 05/23/21 07:37 46 L 05/23/21 07:09 71 18 05/23/21 04:48 36.5 C 88 18 120/71 05/23/21 02:45 BP Pulse Ox Pulse Ox 05/23/21 11:38 93 05/23/21 11:12 90 05/23/21 09:08 90 05/23/21 08:49 125/74 90 05/23/21 07:37 05/23/21 07:09 95 05/23/21 04:48 98 05/23/21 02:45 90 Laboratory Results 05/23/21 08:29 05/23/21 08:29 PG Care Time/CCT Total # of Minutes Spent Total Time Spent with Patient: Total time spent is greater than 50% in coordination of care (as documented) at patient's floor/unit and/or counseling patient: Coding Level of Care Code 27882 Subseq Hosp Care Lvl 3 Diagnoses Acute hypoxemic respiratory failure J96.01 COVID-19 U07.1 Dyspnea R06.02 Dyspnea type: shortness of breath Abnormal CT scan of lung R91.8
[2021-05-23] MEDS ORDERED: INSULIN ASPART 100 UNITS/ML 3 ML PEN SC ONE (14:30)
--- NOTE | 2021-05-23 18:28 | Hospitalist Progress Note ---
Date of Service May 23, 2021 Assessment & Plan (1) Acute hypoxemic respiratory failure: (2) COVID-19: Plan: 50-year-old gentleman with PMH of GERD presents 05/21 with shortness of breath since last 10 days, worsening lately, associated with mild cough and occasional chest discomfort/abdominal discomfort/poor appetite/loss of smell and taste. Per patient, he has not received any Covid vaccine. Is being managed for the following: #. Acute hypoxic respiratory failure SaO2 84% upon arrival to ED, improved to 90s on 4 L oxygen His oxygen requirement increased to high flow oxygen. Patient started on remdesivir 05/21 [received 1 dose], steroid 05/21, Tocilizumab 05/22 -for some reason patient did not receive Tocilizumab released by pharmacy, then . Pulmonology on board: Remdesivir with questionable benefit at this stage. DC'd remdesivir. Continue with dexamethasone. Did not receive Tocilizumab 05/22. If patient deteriorates, transfer to ICU for noninvasive positive pressure ventilation and possibly intubation. Considering for Tocilizumab again. Patient felt slightly better than yesterday Continue to monitor #. Covid pneumonia Patient is not vaccinated against Covid. See above. Continue to monitor for bacterial superinfection. #. GERD: Continue home PPI #. Hyperglycemia: Secondary to steroid. Glycemic pharmacy on board. #. Hypokalemia and hypomagnesemia: Replaced, follow-up with morning labs on 05/25. #. DVT prophylaxis: Lovenox Disposition: Full code. Expect to discharge home upon completion of remdesivir when patient's hypoxic respiratory failure improves. Admission and Anticipated Discharge Date Admission Date: May 21, 2021 Subjective Patient was lying in bed prone, on high flow nasal cannula oxygen, not in acute distress, endorses some shortness of breath when he moves around, no shortness of breath while resting, denies any fever, headache, chills, sore throat, cough, chest pain, belly pain, palpitation, acute changes in his bladder habit. He is eating okay. Had last BM 3 days ago. Physical Exam Physical Exam: GENERAL: Alert and oriented x3. NAD, on on high flow nasal cannula oxygen HEENT: No pallor, no icterus. Pupils equal, round and reactive to light. Oral mucosa moist. NECK: No JVD, no neck masses. HEART: S1 and S2 heard. Regular rate and rhythm. No murmur, no gallop. Auscultation was limited due to yellow stethoscope. RESPIRATORY SYSTEM: Normal AP diameter. No accessory muscle use. No wheezing, no crackles. Auscultation was limited due to yellow stethoscope. ABDOMEN: Soft, bowel sounds present, nontender, no distention. CENTRAL NERVOUS SYSTEM: Alert and oriented x3. No facial droop. Speech is clear. Obeys simple commands. Moves extremities. EXTREMITIES: No edema, no erythema seen. Results & Data Results & Data ([facility]) Vital Signs (Past 12 Hours) Vital Signs Temp Pulse Pulse Pulse Pulse Resp BP 05/23/21 16:22 36.5 C 58 L 18 05/23/21 15:43 53 L 05/23/21 15:12 05/23/21 14:44 54 L 18 05/23/21 11:38 36.5 C 55 L 21 118/75 05/23/21 11:12 67 18 05/23/21 09:08 05/23/21 08:49 36.5 C 54 L 14 05/23/21 07:37 46 L 05/23/21 07:09 71 18 BP Pulse Ox Pulse Ox 05/23/21 16:22 126/78 89 L 05/23/21 15:43 05/23/21 15:12 93 05/23/21 14:44 97 05/23/21 11:38 93 05/23/21 11:12 90 05/23/21 09:08 90 05/23/21 08:49 125/74 90 05/23/21 07:37 05/23/21 07:09 95
[2021-05-23] MEDS: DOCUSATE SODIUM 100 MG CAP PO SCH (21:10)
[2021-05-23] MEDS: ENOXAPARIN INJ 40 MG/0.4 ML SYR SQ SCH (21:11)
[2021-05-24] MEDS: INSULIN ASPART 100 UNITS/ML 3 ML PEN SC SCH ×6 (00:07→21:53)
[2021-05-24 07:30] LABS: Creatinine Clr Calc Pharmacy 129.9 ml/min; Est GFR (African American) 127.7 ml/min; Est GFR (Non-African American) 110.2 ml/min; Estimated Average Glucose 177 mg/dl; Hemoglobin A1C 7.8 % (4.5-5.6)
[2021-05-24] MEDS: guaiFENesin 600 MG TABCR PO SCH ×2 (08:55→20:34)
[2021-05-24] MEDS: DOCUSATE SODIUM 100 MG CAP PO SCH ×2 (08:55→20:34)
[2021-05-24] MEDS: dexAMETHasone 6 MG in SYRINGE 0 ML IV SCH (08:56)
[2021-05-24] MEDS: INSULIN HUMAN NPH SC SCH (08:57)
[2021-05-24] MEDS: INSULIN GLARGINE SOLOSTAR 100 UNITS/ML 3 ML PEN SC SCH ×2 (08:59→21:55)
[2021-05-24] MEDS ORDERED: INSULIN HUMAN NPH SC SCH (09:00)
--- NOTE | 2021-05-24 14:41 | Pharmacy Report ---
Pharmacy Glycemic Short Note 2 - Date of Service May 24, 2021 - Glycemic Short BSG Results (Last 24 hours): 05/23/21 05/23/21 05/23/21 14:48 16:21 21:07 POC Glucose 241 H 200 H 154 H 05/23/21 05/24/21 05/24/21 23:45 04:07 07:53 POC Glucose 145 H 166 H 122 H 05/24/21 11:28 POC Glucose 225 H OUTPATIENT ANTIDIABETIC REGIMEN: * N/A ASSESSMENT: 05/24 * Pt has received 94 units of insulin over the past 24hrs * 51 units of basal with Lantus * 43 units of bolus with NovoLog * BSGs 122-241 mg/dl * Blood sugars much better since NPH started yesterday, increase slightly today * Blood sugars still rising some with meals, tighten CR * A1c 7.8% - new DM dx 05/23 * 50 year old male admitted for SOB, COVID19 +, on IV Dexamethasone causing hyperglycemia, PMH significant for GERD, ordered A1c * Patient requires NPH to cover steroid effects and tighter goal range, CF, and CR * Additional accuchecks overnight tonight until euglycemia established * ADA & AACE recommend a goal blood sugar range 140-180 mg/dl for the majority of critically ill & non-critically ill patients. However, more stringent targets may be selected in individual cases. Will utilize more stringent goal of 110-140mg/dl based on patient age & comorbidities. Additionally, tighter glycemic control is warranted to facilitate wound/infection healing. PLAN FOR INPATIENT GLYCEMIC CONTROL: * Basal insulin * Lantus 8 units SQ BID * INCREASE: NPH 40 units SQ Daily * Bolus insulin * NovoLog per scale ACHS or Q6hrs while NPO * Goal Range: Low 110 mg/dL - High 140 mg/dL * Correction Factor: 20 mg/dL/unit * TIGHTEN: Nutritional / Prandial insulin per carb ratio of 1 unit per 5 grams CHO consumed PLAN FOR DISCHARGE: * to be determined, newly dx DM, A1c 7.8%
--- NOTE | 2021-05-24 18:17 | Hospitalist Progress Note ---
Date of Service May 24, 2021 Assessment & Plan (1) Acute hypoxemic respiratory failure: (2) COVID-19: Plan: 50-year-old gentleman with PMH of GERD presents 05/21 with shortness of breath since last 10 days, worsening lately, associated with mild cough and occasional chest discomfort/abdominal discomfort/poor appetite/loss of smell and taste. Per patient, he has not received any Covid vaccine. Is being managed for the following: #. Acute hypoxic respiratory failure SaO2 84% upon arrival to ED, improved to 90s on 4 L oxygen His oxygen requirement increased to high flow oxygen. Patient started on remdesivir 05/21 [received 1 dose], steroid 05/21, Tocilizumab 05/22 -for some reason patient did not receive Tocilizumab released by pharmacy, then . Received Toci on 05/23. Pulmonology on board: Remdesivir with questionable benefit at this stage. DC'd remdesivir. Continue with dexamethasone. Patient felt slightly better than yesterday, c/w weaning O2. Currently on 8L. Continue to monitor #. Covid pneumonia Patient is not vaccinated against Covid. See above. Continue to monitor for bacterial superinfection. #. GERD: Continue home PPI #. Hyperglycemia: Secondary to steroid. Glycemic pharmacy on board. #. Hypokalemia and hypomagnesemia: Replaced, follow-up with morning labs on 05/25. #. DVT prophylaxis: Lovenox Disposition: Full code. Expect to discharge home upon completion of remdesivir when patient's hypoxic respiratory failure improves. Admission and Anticipated Discharge Date Admission Date: May 21, 2021 Subjective Patient was lying in bed prone, on 8L nasal cannula oxygen, not in acute distress, endorses he feels better today, no shortness of breath while resting, denies any fever, headache, chills, sore throat, cough, chest pain, belly pain, palpitation, acute changes in his bladder habit. He is eating okay. Had BM today. Physical Exam Physical Exam: GENERAL: Alert and oriented x3. NAD, on 8L nasal cannula oxygen HEENT: No pallor, no icterus. Pupils equal, round and reactive to light. Oral mucosa moist. NECK: No JVD, no neck masses. HEART: S1 and S2 heard. Regular rate and rhythm. No murmur, no gallop. Auscultation was limited due to yellow stethoscope. RESPIRATORY SYSTEM: Normal AP diameter. No accessory muscle use. No wheezing, no crackles. Auscultation was limited due to yellow stethoscope. ABDOMEN: Soft, bowel sounds present, nontender, no distention. CENTRAL NERVOUS SYSTEM: Alert and oriented x3. No facial droop. Speech is clear. Obeys simple commands. Moves extremities. EXTREMITIES: No edema, no erythema seen. Results & Data Results & Data ([facility]) Vital Signs (Past 12 Hours) Vital Signs Temp Pulse Resp BP Pulse Ox 05/24/21 12:08 36.5 C 53 L 18 118/68 92 05/24/21 07:54 36.6 C 50 L 18 115/67 98
[2021-05-24] MEDS: ENOXAPARIN INJ 40 MG/0.4 ML SYR SQ SCH (20:35)
[2021-05-25 06:33] LABS: Hematocrit (blood only) 41.4 % (42-52); Hemoglobin 14.6 g/dL (14.0-18.0); Mean Corpuscular Hemoglobin 31.1 pg (25-34); Mean Corpuscular Hgb Conc 35.3 g/dL (32-36); Mean Corpuscular Volume 88.1 fL (80-100); Mean Platelet Volume 10.1 fL (7.4-10.4); Platelet Count 271 K/uL (130-400); RDW Coefficient of Variation 12.4 % (11.5-14.5); White Blood Count 8.76 K/uL (4.8-10.8)
[2021-05-25 07:13] LABS: BUN Creatinine Ratio 21.1 (10-20); Calcium 8.7 mg/dl (8.5-10.1); Creatinine Clr Calc Pharmacy 132.6 ml/min; Est GFR (African American) 124.2 ml/min; Est GFR (Non-African American) 107.1 ml/min; Magnesium 2.4 mg/dl (1.8-2.4); Phosphorus 3.8 mg/dl (2.5-4.9); Potassium 4.1 mmol/L (3.5-5.1)
[2021-05-25] MEDS: dexAMETHasone 6 MG in SYRINGE 0 ML IV SCH (08:33)
[2021-05-25] MEDS: guaiFENesin 600 MG TABCR PO SCH ×2 (08:33→20:39)
[2021-05-25] MEDS: DOCUSATE SODIUM 100 MG CAP PO SCH ×2 (08:33→20:39)
[2021-05-25] MEDS: INSULIN HUMAN NPH SC SCH (08:39)
[2021-05-25] MEDS: INSULIN ASPART 100 UNITS/ML 3 ML PEN SC SCH ×4 (08:39→21:25)
[2021-05-25] MEDS: INSULIN GLARGINE SOLOSTAR 100 UNITS/ML 3 ML PEN SC SCH ×3 (08:39→21:27)
--- NOTE | 2021-05-25 10:10 | Pharmacy Report ---
Pharmacy Glycemic Short Note 2 - Date of Service May 25, 2021 - Glycemic Short BSG Results (Last 24 hours): 05/24/21 05/24/21 05/24/21 11:28 17:05 21:44 Glucose POC Glucose 225 H 226 H 214 H 05/25/21 06:04 Glucose 74 POC Glucose OUTPATIENT ANTIDIABETIC REGIMEN: * N/A ASSESSMENT: 05/25 * Pt has received 113 units of insulin over the past 24hrs * 16 units of basal with Lantus * 40 units of NPH for steroid induced hyperglycemia * 57 units of bolus with NovoLog * BSGs [id number] mg/dl * AM fasting BSG below goal range for inpatient targets at 74 mg/dl. Will decrease basal insulin with Lantus * Post-prandial BSGs elevated secondary to steroids with Dexamethasone 6mg IV daily. Considered tightening CF/CR but will hold off since likely BSGs will be lower today with insulin at steady state. 05/24 * Pt has received 94 units of insulin over the past 24hrs * 51 units of basal with Lantus * 43 units of bolus with NovoLog * BSGs 122-241 mg/dl * Blood sugars much better since NPH started yesterday, increase slightly today * Blood sugars still rising some with meals, tighten CR * A1c 7.8% - new DM dx 05/23 * 50 year old male admitted for SOB, COVID19 +, on IV Dexamethasone causing hyperglycemia, PMH significant for GERD, ordered A1c * Patient requires NPH to cover steroid effects and tighter goal range, CF, and CR * Additional accuchecks overnight tonight until euglycemia established * ADA & AACE recommend a goal blood sugar range 140-180 mg/dl for the majority of critically ill & non-critically ill patients. However, more stringent targets may be selected in individual cases. Will utilize more stringent goal of 110-140mg/dl based on patient age & comorbidities. Additionally, tighter glycemic control is warranted to facilitate wound/infection healing. PLAN FOR INPATIENT GLYCEMIC CONTROL: * Basal insulin * decrease Lantus from 8 units SQ BID to 5 units SQ BID * No change NPH 40 units SQ Daily * Bolus insulin * NovoLog per scale ACHS or Q6hrs while NPO * Goal Range: Low 110 mg/dL - High 140 mg/dL * Correction Factor: 20 mg/dL/unit * TIGHTEN: Nutritional / Prandial insulin per carb ratio of 1 unit per 5 grams CHO consumed PLAN FOR DISCHARGE: * A1c 7.8% on 05/24/21. This is DIAGNOSTIC for diabetes since A1c > 6.5% * Goal A1c < 7% based on age/co-morbidities * Metformin should be started at the time type 2 diabetes is diagnosed unless there are contraindications. Metformin is effective and safe, is inexpensive, and may reduce risk of cardiovascular events and . 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 Typically the XR formulation of metformin is better tolerated than the immediate release formulation. Continue to titrate metformin dosing upwards as recommended. Dosage increases should be made in increments of 500 mg weekly, up to 2,000 mg/day PO, given in divided doses. Doses above 2000 mg/day may be better tolerated if divided and given 3 times per day with meals. Max: 2,550 mg/day PO, in divided doses * Support Patient Self-Management * Healthy Lifestyle (diet, exercise, and smoking cessation) * Disease self-management (SMBG) * Prevention of complications (BP, Lipid goals, Immunizations) * Consider outpatient Diabetes Self-Management Education & Support
--- NOTE | 2021-05-25 16:43 | Hospitalist Progress Note ---
Date of Service May 25, 2021 Assessment & Plan (1) Acute hypoxemic respiratory failure: (2) COVID-19: Plan: 50-year-old gentleman with PMH of GERD presents 05/21 with shortness of breath since last 10 days, worsening lately, associated with mild cough and occasional chest discomfort/abdominal discomfort/poor appetite/loss of smell and taste. Per patient, he has not received any Covid vaccine. Is being managed for the following: #. Acute hypoxic respiratory failure SaO2 84% upon arrival to ED, improved to 90s on 4 L oxygen His oxygen requirement increased to high flow oxygen. Patient started on remdesivir 05/21 [received 1 dose], steroid 05/21, Tocilizumab 05/22 -for some reason patient did not receive Tocilizumab released by pharmacy, then . Received Toci on 05/23. Pulmonology consulted: Remdesivir with questionable benefit at this stage. DC'd remdesivir. Continue with dexamethasone. Patient showing improvement daily, c/w weaning O2. Currently on 6L. Continue to monitor #. Covid pneumonia Patient is not vaccinated against Covid. See above. Continue to monitor for bacterial superinfection. #. GERD: Continue home PPI #. Hyperglycemia: Secondary to steroid. Glycemic pharmacy on board. #. Hypokalemia and hypomagnesemia: Replaced, follow-up with morning labs on 05/25. #. DVT prophylaxis: Lovenox Disposition: Full code. Expect to discharge home upon completion of remdesivir when patient's hypoxic respiratory failure improves. Admission and Anticipated Discharge Date Admission Date: May 21, 2021 Subjective Patient was lying in bed, on 6L nasal cannula oxygen, not in acute distress, endorses he feels better, no shortness of breath while resting, denies any fever, headache, chills, sore throat, cough, chest pain, belly pain, palpitation, acute changes in his bladder habit. He is eating okay. Had BM yesterday. Physical Exam Physical Exam: GENERAL: Alert and oriented x3. NAD, on 6L nasal cannula oxygen HEENT: No pallor, no icterus. Pupils equal, round and reactive to light. Oral mucosa moist. NECK: No JVD, no neck masses. HEART: S1 and S2 heard. Regular rate and rhythm. No murmur, no gallop. Auscultation was limited due to yellow stethoscope. RESPIRATORY SYSTEM: Normal AP diameter. No accessory muscle use. No wheezing, no crackles. Auscultation was limited due to yellow stethoscope. ABDOMEN: Soft, bowel sounds present, nontender, no distention. CENTRAL NERVOUS SYSTEM: Alert and oriented x3. No facial droop. Speech is clear. Obeys simple commands. Moves extremities. EXTREMITIES: No edema, no erythema seen. Results & Data Results & Data ([facility]) Vital Signs (Past 12 Hours) Vital Signs Temp Pulse Pulse Resp BP Pulse Ox 05/25/21 16:00 52 L 05/25/21 12:07 36.5 C 62 19 127/80 96 05/25/21 10:27 43 L 05/25/21 10:23 18 05/25/21 08:05 36.4 C L 56 L 19 99/63 L 93
[2021-05-25] MEDS: ENOXAPARIN INJ 40 MG/0.4 ML SYR SQ SCH (20:39)
[2021-05-26 06:27] LABS: Alanine Aminotransferase 83 U/L (12-78); Aspartate Aminotransferase 31 U/L (15-37)
[2021-05-26] MEDS: dexAMETHasone 6 MG in SYRINGE 0 ML IV SCH (08:30)
[2021-05-26] MEDS: DOCUSATE SODIUM 100 MG CAP PO SCH (08:30)
[2021-05-26] MEDS: guaiFENesin 600 MG TABCR PO SCH (08:30)
[2021-05-26] MEDS: INSULIN ASPART 100 UNITS/ML 3 ML PEN SC SCH ×2 (08:44→12:51)
[2021-05-26] MEDS ORDERED: INSULIN GLARGINE SOLOSTAR 100 UNITS/ML 3 ML PEN SC SCH (09:00)
[2021-05-26] MEDS ORDERED: INSULIN HUMAN NPH SC SCH ×2 (09:00)
--- NOTE | 2021-05-26 11:02 | Pharmacy Report ---
Pharmacy Glycemic Short Note 2 - Date of Service May 26, 2021 - Glycemic Short BSG Results (Last 24 hours): 05/25/21 05/25/21 05/25/21 12:18 17:22 20:32 POC Glucose 107 H 144 H 171 H 05/26/21 07:47 POC Glucose 83 OUTPATIENT ANTIDIABETIC REGIMEN: * N/A ASSESSMENT: 05/26 * Pt has received 74 units of insulin over the past 24hrs * 10 units of basal with Lantus * 40 units of NPH for steroid induced hyperglycemia * 24 units of bolus with NovoLog * BSGs [phone] mg/dl * AM fasting BSG below goal range for inpatient targets at 74 mg/dl. Will decrease basal insulin with Lantus to just once daily. This will be a 50% dose reduction in basal * Post-prandial BSGs all in goal range with current NPH order and CF/CR. CF/CR loosened yesterday afternoon when BSGs trending on the low side. 05/25 * Pt has received 113 units of insulin over the past 24hrs * 16 units of basal with Lantus * 40 units of NPH for steroid induced hyperglycemia * 57 units of bolus with NovoLog * BSGs 564-857-499-226-214-74 mg/dl * AM fasting BSG below goal range for inpatient targets at 74 mg/dl. Will decrease basal insulin with Lantus * Post-prandial BSGs elevated secondary to steroids with Dexamethasone 6mg IV daily. Considered tightening CF/CR but will hold off since likely BSGs will be lower today with insulin at steady state. 05/24 * Pt has received 94 units of insulin over the past 24hrs * 51 units of basal with Lantus * 43 units of bolus with NovoLog * BSGs 122-241 mg/dl * Blood sugars much better since NPH started yesterday, increase slightly today * Blood sugars still rising some with meals, tighten CR * A1c 7.8% - new DM dx 05/23 * 50 year old male admitted for SOB, COVID19 +, on IV Dexamethasone causing hyperglycemia, PMH significant for GERD, ordered A1c * Patient requires NPH to cover steroid effects and tighter goal range, CF, and CR * Additional accuchecks overnight tonight until euglycemia established * ADA & AACE recommend a goal blood sugar range 140-180 mg/dl for the majority of critically ill & non-critically ill patients. However, more stringent targets may be selected in individual cases. Will utilize more stringent goal of 110-140mg/dl based on patient age & comorbidities. Additionally, tighter glycemic control is warranted to facilitate wound/infection healing. PLAN FOR INPATIENT GLYCEMIC CONTROL: * Basal insulin * decrease Lantus from 5 units SQ BID to 5 units SQ daily in AM (DC PM dose) * Steroid induced hyperglycemia with Dexamethasone 6mg IV Daily * No change NPH 40 units SQ Daily * WIll DC NPH when DXM DC * Bolus insulin * NovoLog per scale ACHS or Q6hrs while NPO * Goal Range: Low 110 mg/dL - High 140 mg/dL * Correction Factor: 25 mg/dL/unit * Nutritional / Prandial insulin per carb ratio of 1 unit per 7 grams CHO consumed PLAN FOR DISCHARGE: * A1c 7.8% on 05/24/21. This is DIAGNOSTIC for diabetes since A1c > 6.5% * Goal A1c < 7% based on age/co-morbidities * Metformin should be started at the time type 2 diabetes is diagnosed unless there are contraindications. Metformin is effective and safe, is inexpensive, and may reduce risk of cardiovascular events and . * B12 supplementation may be necessary with [facility] metformin use * FDA has revised the label for metformin to reflect its safety in patients with eGFR 30 mL/min or above * Recommend starting: Metformin XR 500mg PO daily with evening meal. Typically the XR formulation of metformin is better tolerated than the immediate release formulation. Continue to titrate metformin dosing upwards as recommended. Dosage increases should be made in increments of 500 mg weekly, up to 2,000 mg/day PO, given in divided doses. Doses above 2000 mg/day may be better tolerated if divided and given 3 times per day with meals. Max: 2,550 mg/day PO, in divided doses * Support Patient Self-Management * Healthy Lifestyle (diet, exercise, and smoking cessation) * Disease self-management (SMBG) * Prevention of complications (BP, Lipid goals, Immunizations) * Consider outpatient Diabetes Self-Management Education & Support
--- NOTE | 2021-05-26 16:33 | Discharge Summary ---
Date of Service May 26, 2021 Admission HPI Per Admitting Provider CHIEF COMPLAINT: COVID pneumonia and hypoxia. HISTORY OF PRESENT ILLNESS: This is a 50-year-old male with past medical history significant for GERD, presents with shortness of breath. The patient states he is having symptoms since 05/12/2021 with some mild cough and shortness of breath, occasional chest discomfort, abdominal discomfort, and occasional on and off diarrhea, poor appetite, and on and off loss of smell and taste, and it was not getting better, and earlier he had fever, now he does not have any fever. He came to the ER and he was saturating at 86% on room air and with 4 liters he was saturating okay, but later he was requiring high-flow oxygen. When I saw him, the patient denies any headache, no neck pain, no blurred visions, no earache, no runny nose, no sore throat, no difficulty swallowing, no nausea, no rash. The patient is not vaccinated. ALLERGIES: No known drug allergies. PAST MEDICAL HISTORY: As mentioned above. PAST SURGICAL HISTORY: Denies any surgical history. FAMILY HISTORY: The patient says he does not have any parents. SOCIAL HISTORY: Quit smoking and alcohol in 2012. No drug use. REVIEW OF SYSTEMS: As per HPI. Rest of the review of systems negative. Admission Exam Per Admitting Provider GENERAL: The patient is of moderate build, not in acute distress. VITAL SIGNS: Temperature 36.5, pulse 75, respiratory rate 20, blood pressure 134/77, oxygen 92% on high flow, 25 liters, 60% FiO2. HEENT: No pallor, no icterus. Pupils equal, round and reactive to light. Oral mucosa moist. NECK: No JVD, no neck masses. CARDIOVASCULAR: S1 and S2 heard. Regular rate and rhythm. No murmur, no gallop. RESPIRATORY SYSTEM: Normal AP diameter. No accessory muscle use. No wheezing, no crackles. ABDOMEN: Soft, bowel sounds present, nontender, no distention. CENTRAL NERVOUS SYSTEM: Cranial nerves II-XII grossly intact, nonfocal. EXTREMITIES: No edema, no erythema. Principal Diagnosis Acute hypoxic respiratory failure Covid 19 Newly diagnosed diabetes Discharge Exam GENERAL: Alert and oriented x3. NAD, on 3L nasal cannula oxygen HEENT: No pallor, no icterus. Pupils equal, round and reactive to light. Oral mucosa moist. NECK: No JVD, no neck masses. HEART: S1 and S2 heard. Regular rate and rhythm. No murmur, no gallop. Auscultation was limited due to yellow stethoscope. RESPIRATORY SYSTEM: Normal AP diameter. No accessory muscle use. No wheezing, no crackles. Auscultation was limited due to yellow stethoscope. ABDOMEN: Soft, bowel sounds present, nontender, no distention. CENTRAL NERVOUS SYSTEM: Alert and oriented x3. No facial droop. Speech is clear. Obeys simple commands. Moves extremities. EXTREMITIES: No edema, no erythema seen. Discharge Data Allergies Allergy/AdvReac Type Severity Reaction Status Date / Time No Known Allergies Allergy Unverified 05/21/21 15:58 Consultations 05/21/21 19:28 ED Decision to Admit Stat 05/22/21 08:27 Consult Pulmonology Routine Ordered Studies 05/21/21 15:11 CT angio chest PE protocol Stat Diabetes Follow up Diabetes Follow-up Needed for Newly Diagnosed Diabetes Hospital Course (1) Acute hypoxemic respiratory failure: (2) COVID-19: 50-year-old gentleman with PMH of GERD presents 05/21 with shortness of breath since last 10 days, worsening lately, associated with mild cough and occasional chest discomfort/abdominal discomfort/poor appetite/loss of smell and taste. Per patient, he has not received any Covid vaccine. Is being managed for the following: #. Acute hypoxic respiratory failure SaO2 84% upon arrival to ED, improved to 90s on 4 L oxygen His oxygen requirement increased to high flow oxygen. Patient started on remdesivir 05/21 [received 1 dose], steroid 05/21, Tocilizumab 05/22 -for some reason patient did not receive Tocilizumab released by pharmacy, then . Received Toci on 05/23. Pulmonology consulted: Remdesivir with questionable benefit at this stage. DC'd remdesivir. Continue with dexamethasone. Patient remarkable improvement, underwent two-step test for home oxygen requirement Patient is being discharged to home with self-care on home oxygen, self- isolation, daily dexamethasone. Patient updated about the plan of care and is understanding and agreeable to the plan of care. #. Covid pneumonia Patient is not vaccinated against Covid. See above. Patient improved on cough, no chest pain, feels better. #. GERD: Continue home PPI #. Diabetes mellitus: A1c 7.8 this admission, started on Metformin upon discharge, patient needs close follow-up with his primary care physician for dose adjustment for his newly diagnosed diabetes mellitus. Patient aware. #. Hypokalemia and hypomagnesemia: Resolved #. DVT prophylaxis: Lovenox while inpatient. Disposition: Getting discharged to home with self-care with home oxygen/dexamethasone daily for 6 days/self-isolation. Along with isolation COVID-19 instruction, following instructions were communicated to the patient at time of discharge: You have newly diagnosed diabetes: You are started on Metformin upon discharge. Continue to follow following healthy habits. Follow-up with your qa analyst and primary care physician for further recommendation. You will need dose adjustment on Metformin along with your 3 monthly A1c levels. Healthy Lifestyle (diet, exercise, and smoking cessation) Disease self-management (SMBG) Prevention of complications (BP, Lipid goals, Immunizations) Consider outpatient Diabetes Self-Management Education & Support Follow-up with your PCP within 1 week's time. Complete the course of steroid. If you have worsening shortness of breath or chest pain or increasing weakness or cough, please contact your PCP or emergency immediately. Total Time Total Time Spent Total Time Spent (In Minutes): 40 Discharge Plan Discharge Items Patient Disposition: Home - Self-Care Reason For Visit: SOB Discharge Diagnosis: Acute hypoxic respiratory failure Covid 19 Newly diagnosed diabetes Condition on Discharge: Good Activity: Resume your previous activity Non-emergency contact: Primary Care Provider Call non-emergency contact if: you have any medication questions and your symptoms worsen Follow-up/Referrals: PCP,NO [Primary Care Provider] - Diet: Carb Consistent or DM2 and Heart Healthy Addtl Attending Provider Instructions: Home Isolation COVID-19 Instructions The following information about Home Isolation is from the CDC Website: https://www.cdc.gov/coronavirus/2019-ncov/hcp/hfvnpfqf-nqdbdom-mwlmte.html Stay home except to get medical care People who are mildly ill with COVID-19 are able to isolate at home during their illness. You should restrict activities outside your home, except for getting medical care. Do not go to work, school, or public areas. Avoid using public transportation, ride-sharing, or taxis. Separate yourself from other people and animals in your home People: As much as possible, you should stay in a specific room and away from other people in your home. Also, you should use a separate bathroom, if available. Animals: You should restrict contact with pets and other animals while you are sick with COVID-19, just like you would around other people. Although there have not been reports of pets or other animals becoming sick with COVID-19, it is still recommended that people sick with COVID-19 limit contact with animals until more information is known about the virus. When possible, have another member of your household care for your animals while you are sick. If you are sick with COVID-19, avoid contact with your pet, including petting, snuggling, being kissed or licked, and sharing food. If you must care for your pet or be around animals while you are sick, wash your hands before and after you interact with pets and wear a face mask. Call ahead before visiting your doctor If you have a medical appointment, call the healthcare provider and tell them that you have or may have COVID-19. This will help the healthcare providers office take steps to keep other people from getting infected or exposed. Wear a face mask You should wear a face mask when you are around other people (e.g., sharing a room or vehicle) or pets and before you enter a healthcare providers office. If you are not able to wear a face mask (for example, because it causes trouble breathing), then people who live with you should not stay in the same room with you, or they should wear a face mask if they enter your room. Cover your coughs and sneezes Cover your mouth and nose with a tissue when you cough or sneeze. Throw used tissues in a lined trash can. Immediately wash your hands with soap and water for at least 20 seconds or, if soap and water are not available, clean your hands with an alcohol-based hand link wire fabric machine operator that contains at least 60% alcohol. Clean your hands often Wash your hands often with soap and water for at least 20 seconds, especially after blowing your nose, coughing, or sneezing; going to the bathroom; and before eating or preparing food. If soap and water are not readily available, use an alcohol-based hand link wire fabric machine operator with at least 60% alcohol, covering all surfaces of your hands and rubbing them together until they feel dry. Soap and water are the best option if hands are visibly dirty. Avoid touching your eyes, nose, and mouth with unwashed hands. Avoid sharing personal household items You should not share dishes, drinking glasses, cups, eating utensils, towels, or bedding with other people or pets in your home. After using these items, they should be washed thoroughly with soap and water. Clean all high-touch surfaces everyday High touch surfaces include counters, tabletops, doorknobs, bathroom fixtures, toilets, phones, keyboards, tablets, and bedside tables. Also, clean any surfaces that may have blood, stool, or body fluids on them. Use a household cleaning spray or wipe, according to the label instructions. Labels contain instructions for safe and effective use of the cleaning product including precautions you should take when applying the product, such as wearing gloves and making sure you have good ventilation during use of the product. Monitor your symptoms Seek prompt medical attention if your illness is worsening (e.g., difficulty breathing).Beforeseeking care, call your healthcare provider and tell them that you have, or are being evaluated for, COVID-19. Put on a face mask before you enter the facility. These steps will help the healthcare providers office to keep other people in the office or waiting room from getting infected or exposed. Ask your healthcare provider to call the local or state health department. Persons who are placed under active monitoring or facilitated self- monitoring should follow instructions provided by their local health department or occupational health professionals, as appropriate. When working with your local health department check their available hours. If you have a medical emergency and need to call 911, notify the dispatch personnel that you have, or are being evaluated for COVID-19. If possible, put on a face mask before emergency medical services arrive. Discontinuing home isolation Patients with confirmed COVID-19 should remain under home isolation precautions until the risk of secondary transmission to others is thought to be low. The decision to discontinue home isolation precautions should be made on a [id number] basis, in consultation with healthcare providers and [facility] and local health departments. Congested legs home oxygen via nasal cannula 2 L activity concentrator with portability You have newly diagnosed diabetes: You are started on Metformin upon discharge. Continue to follow following healthy habits. Follow-up with your qa analyst and primary care physician for further recommendation. You will need dose adjustment on Metformin along with your 3 monthly A1c levels. Healthy Lifestyle (diet, exercise, and smoking cessation) Disease self-management (SMBG) Prevention of complications (BP, Lipid goals, Immunizations) Consider outpatient Diabetes Self-Management Education & Support Follow-up with your PCP within 1 week's time. Complete the course of steroid. If you have worsening shortness of breath or chest pain or increasing weakness or cough, please contact your PCP or emergency immediately. Pending Studies at Discharge: No Stand-Alone Forms: My [facility], Smoking Cessation Medications and DC Order Prescriptions: New dexamethasone 6 mg tablet 6 mg PO DAILY 6 Days Qty: 6 RF: 0 metformin 500 mg tablet 500 mg PO DAILY 30 Days Qty: 30 RF: 0 Continued pantoprazole 40 mg tablet,delayed release (DR/EC) 40 mg PO DAILY PRN (Reason: Gi Upset) RF: 0 Discharge Orders: Discharge Order (Routine); Ordered 05/26/21 Ordered By: Danielle Ogden/Other Patient Handouts: A1C, High Blood Sugar (Hyperglycemia), Managing Type 2 Diabetes, 5 Steps for Eating Healthier, Type 2 Diabetes Admission Data Admit Date/Time: 05/21/21 20:46 Attending Provider: Danielle Perkins Admit Provider: Mauricio Charles Primary Care Provider: PCP,NO Other Providers: Mauricio Charles ; Tirso Gonzalez Other Interventions: Discharge Summary Assessment (RN) Last Done: 05/26/21 14:46
== END 2021-05-26 16:25 | disposition home or self-care (01) | DRG 177 ==
LOC: ED 13:22 → SUATTDRO 20:46 → 2S 20:46